=== PATIENT | female | born 1960 | race Caucasian/White ===

== ENCOUNTER 2018-09-11 09:08 | Emergency (ER) | payer BC ==
--- NOTE | 2018-09-11 09:21 | Emergency Department Record ---
History of Present Illness - General Chief Complaint: Headache Migraine Stated Complaint: H/A Time Seen by Provider: 09/11/18 09:20 Source: Patient Mode of Arrival: Ambulatory Limitations: No limitations - History of Present Illness Initial Comments: The patient is here due to the acute onset of a global BRUNNER about 45 minutes prior to presenting to the ER. She woke up at 8:30is and noticed mild nausea and a mild BRUNNER. She then vomited once and then developed a severe global BRUNNER that is the worst BRUNNER of her life. Additionally she had mild L arm numbness and weakness. There were no speech issues or problems with swallowing or leg weakness or numbness. The patient denies any recent illnesses or injuries and has no hx of similar BRUNNER's. MD Complaint: Headache Onset/Timin -: Minutes(s) Onset Description: Awoke with symptoms Location: Diffuse Severity: Severe Severity scale (1-10): 9 Quality: Other Consistency: Constant Improves With: Nothing Worsens With: None Treatments Prior to Arrival: None - Related Data Home Medications Medication Instructions Recorded Confirmed Last Taken No Home Med [NO HOME MEDS] 09/11/18 09/11/18 Unknown Allergies Allergy/AdvReac Type Severity Reaction Status Date / Time No Known Drug Allergies Allergy Verified 09/11/18 09:15 Travel Screening - Travel/Exposure Within Last 30 Days Have you traveled within the last 30 days?: No - Travel/Exposure Within Last Year Have you traveled outside the [place] in the last year?: No - Additonal Travel Details Have you been exposed to anyone with a communicable illness?: No - Travel Symptoms Symptom Screening: None Review of Systems Constitutional: Denies: Chills, Fever Eyes: Denies: Eye discharge ENT: Denies: Congestion Respiratory: Denies: Cough Cardiovascular: Denies: Arrhythmia Endocrine: Denies: Fatigue Gastrointestinal: Denies: Abdominal pain Genitourinary: Denies: Dysuria Musculoskeletal: Denies: Arthralgia Past Medical History - SOCIAL HISTORY Smoking Status: Never smoker Alcohol Use: Heavy Drug Use: None - RESPIRATORY Hx Respiratory Disorders: No - CARDIOVASCULAR Hx Cardio Disorders: No - NEURO Hx Neuro Disorders: No - GI Hx GI Disorders: Yes Hx Wt Loss/Wt Gain: Yes (up 10-15lbs in 9 months) Hx of Polyps: Yes - Hx Genitourinary Disorders: No - ENDOCRINE Hx Endocrine Disorders: No - MUSCULOSKELETAL Hx Musculoskeletal Disorders: No - PSYCH Hx Psych Problems: No - HEMATOLOGY/ONCOLOGY Hx Hematology/Oncology Disorders: No Family Medical History Any Significant Family History?: No Physical Exam - General General Appearance: Alert, Oriented x3, Cooperative, Moderate distress (due to the BRUNNER.) - Head Head exam: Atraumatic, Normocephalic, Normal inspection - Eye Eye exam: Normal appearance, PERRL, EOMI - ENT Throat exam: Normal inspection. negative: Tonsillar erythema, Tonsillar exudate - Neck Neck exam: Normal inspection, Meningismus (mild.) - Respiratory Respiratory exam: Normal lung sounds bilaterally. negative: Respiratory distress - Cardiovascular Cardiovascular Exam: Regular rate, Normal rhythm, Normal heart sounds - GI/Abdominal GI/Abdominal exam: Soft, Normal bowel sounds. negative: Tenderness - Extremities Extremities exam: Normal inspection - Neurological Neurological exam: Alert, Motor sensory deficit (There is mild L arm weakness (4 /5) and mild diffuse decreased sensation in a glove distribution to the mid arm. ), Normal gait, Oriented X3. negative: Abnormal gait, Altered Course Vital Signs 09/11/18 09:16 Temperature 97.7 F Pulse Rate 85 Respiratory 20 Rate Blood Pressure 184/92 Pulse Ox 96 - Reevaluation(s) Reevaluation #1: The Head CT was read as neg but due to the high risk nature of the patient's complaints I did consult with Dr. Armstrong at [facility] who is professional fighter for the Stroke team and he would like the patient immediately transferred to the ER for further eval. I then did discuss the case with Dr. Dumas in the ER and she does accept the patient in transfer. 09/11/18 10:09 Medical Decision Making - Data Complexity MDM Data: Labs Ordered and/or Reviewed, X-Ray Ordered and/or Reviewed, EKG Ordered and/or Reviewed - Lab Data Result diagrams: 09/11/18 09:18 09/11/18 09:18 - EKG Data -: EKG Interpreted by Me EKG: No Acute Changes - Radiology Data Radiology results: Report reviewed (Head CT: Neg.) Disposition Disposition: Transfer Clinical Impression: Headache Qualifiers: Headache type: unspecified Headache chronicity pattern: acute headache Intractability: intractable Qualified Code(s): R51 - Headache Disposition: Acute Care Hospital Transfer Transfer To: [facility] Reason For Transfer: Stroke Team Accepting Physician: Piter Time Discussed w/Accepting Physician: 10:11 Condition: (2) Stable Forms: Patient Portal Access Time of Disposition: 10:11 Quality - Quality Measures Quality Measures: N/A - Blood Pressure Screening View Details: Yes Does Patient Have Any of the Following: No Blood Pressure Classification: Hypertensive Reading Systolic Measurement: 184 Diastolic Measurement: 92 Screening for High Blood Pressure: < First Hypertensive BP, F/U Documented > [ [id number]] First Hypertensive Follow-up Interventions: Referral to alternative/primary care provider.
[2018-09-11] MEDS ORDERED: MORPHINE SULFATE 10 MG/ML VIAL IVP ONE (09:28)
[2018-09-11] MEDS ORDERED: ONDANSETRON HCL IV 4 MG/2 ML VIAL IVP ONE ×2 (09:28→09:46)
[2018-09-11 09:37] LABS: BASO % 0.6 % (0-6); EOS % 2.5 % (0-6); GRAN % 41.4 % (47-80); HEMATOCRIT 44.4 % (35.0-47.0); LYMPH % 47.4 % (16-45); MEAN CELL VOLUME 93.7 fl (81-97); MEAN CORPUSCULAR HEMOGLOBIN 31.6 pg (27-33); MEAN CORPUSCULAR HGB CONC 33.8 g/dl (32-36); MEAN PLATELET VOLUME 9.5 fl (7.4-10.4); MONO % 8.1 % (0-9); PLATELET COUNT 278 K/uL (130-400); RED BLOOD COUNT 4.74 M/uL (3.80-5.40); RED CELL DISTRIBUTION WIDTH 12.6 % (11.5-14.5); WHITE BLOOD COUNT W/O DIFF 6.7 K/uL (4.2-12.2)
[2018-09-11] MEDS ORDERED: HYDROMORPHONE HCL 2 MG/ML VIAL IVP ONE (09:45)
[2018-09-11 09:48] LABS: PROTHROMBIN TIME (PATIENT) 10.1 SECONDS (9.5-12.1)
[2018-09-11 09:51] LABS: BLOOD UREA NITROGEN 12 mg/dL (6-20); CREATININE 0.6 mg/dL (0.5-0.9); EST GLOMERULAR FILTRATION RATE > 60 mL/min; TOTAL PROTEIN 8.3 g/dL (6.6-8.7)
[2018-09-11 09:54] LABS: GLUCOSE,RANDOM 128 mg/dL (74-109)
[2018-09-11 09:56] LABS: ALBUMIN 4.8 g/dL (4.0-5.0); ALKALINE PHOSPHATASE 67 U/L (45-87); ALT/SGPT 24 U/L (<33); AST/SGOT 23 U/L (10.0-35.0)
[2018-09-11 09:57] LABS: BILIRUBIN,DIRECT < 0.2 mg/dL (0-0.3)
--- NOTE | 2018-09-12 19:15 | CT SCAN REPORT ---
EXAM: CT SCAN HEAD WO CONTRAST HISTORY: SUDDEN ONSET SEVERE HEADACHE. TECHNIQUE: Noncontrast CT brain. COMPARISON: None. FINDINGS: No midline shift, mass effect, or abnormal intra or extraaxial fluid collection. No cerebral edema, focal mass, or intracranial hemorrhage is seen. Minimal hyperdensities in the basal ganglia bilaterally, slightly more pronounced on the right, are favored to represent senescent calcifications. Ventricle sizes are within normal limits. Basal cisterns are not effaced. No evidence of displaced calvarial fracture. Visualized paranasal sinuses and mastoid air cells are clear. IMPRESSION: 1. NO DEFINITE ACUTE INTRACRANIAL FINDINGS. 2. MINIMAL HYPERDENSITIES IN THE BILATERAL BASAL GANGLIA ARE FAVORED TO REPRESENT SENESCENT CALCIFICATIONS. IF THERE IS HIGH CLINICAL CONCERN, SHORT- INTERVAL FOLLOW-UP CT COULD BE OBTAINED TO ASSESS FOR STABILITY. JOB NUMBER[facility] [id number] [facility]
== END 2018-09-11 10:30 | disposition short-term general hospital (02) ==
LOC: ER 09:08
DX: R51 Headache (principal); R11.2 Nausea with vomiting, unspecified; R20.0 Anesthesia of skin; R29.898 Other symptoms and signs involving the musculoskeletal system
CPT/HCPCS: 99285 ×2; 96374; 96375; 85025; 85730; 85610; 80076; 80048; 70450; 93005; 93010; J2405; J1170; J2270